=== PATIENT | female | born 1985 | race Caucasian/White ===

== ENCOUNTER 2017-03-05 06:42 | Day surgery (SDC) | payer MEDICAID ==
[2017-03-05] MEDS ORDERED: LACTATED RINGER'S 1,000 ML IV SCH (07:00)
== END 2017-03-05 08:15 | disposition home or self-care (01) ==
LOC: SDS 06:42
PROVIDERS: ATTEND Obstetrics & Gynecology
DX: Z30.2 Encounter for sterilization (principal); Z53.9 Procedure and treatment not carried out, unspecified reason

== ENCOUNTER 2017-03-07 07:29 | Day surgery (SDC) | payer MEDICAID ==
[2017-03-07] VITALS (11 sets, daily range): BP systolic 84–121; BP diastolic 37–78; PULSE 59–80; RESP 12–24; Ht 154.9 cm; Wt 61.0 kg
[~2017-03-07] VITALS: Ht 154.9 cm; Wt 61.0 kg
[2017-03-07 08:34] LABS: ADD SCAN DIFF NO
[2017-03-07 08:43] LABS: HEMATOCRIT 34.7 % (37.0-47.0); HEMOGLOBIN 11.4 g/dl (12.0-16.0); MEAN CORPUSCULAR HGB CONC 32.9 g/dl (32.0-37.0); MEAN CORPUSCULAR VOLUME 91.3 fl (82.0-101.0); MEAN PLATELET VOLUME 9.4 fl (7.4-10.4); PLATELET COUNT 240 10^3/UL (140-415); RED CELL DISTRIBUTION WIDTH 12.4 % (11.5-14.5); WHITE BLOOD COUNT 7.9 10^3/ul (4.8-10.8)
[2017-03-07] MEDS ORDERED: LACTATED RINGER'S 1,000 ML IV SCH (09:00)
[2017-03-07] MEDS ORDERED: FENTAnyl 50 MCG/ML VIAL ONE (09:03)
[2017-03-07] MEDS ORDERED: FAMOTIDINE 20 MG INJ ONE (09:03)
[2017-03-07] MEDS ORDERED: DEXAMETHASONE 4 MG/ML 1 ML INJ ONE (09:03)
[2017-03-07] MEDS ORDERED: PROPOFOL 20 ML ONE (09:03)
[2017-03-07] MEDS ORDERED: MIDAZOLAM 1 MG/ML 2 ML INJ ONE (09:03)
[2017-03-07] MEDS ORDERED: ONDANSETRON 4 MG INJ ONE (09:03)
[2017-03-07 09:53] LABS: EOSINOPHILS # 1.1 10^3/ul (0.0-0.5); LYMPHOCYTES # 3.1 10^3/ul (0.8-2.9); MONOCYTE # 0.3 10^3/ul (0.3-0.9); NEUTROPHIL # 3.4 10^3/ul (1.6-7.5)
[2017-03-07] MEDS ORDERED: ACETAMINOPHEN 1000MG/100ML IV 100 ML ONE (10:12)
[2017-03-07] MEDS ORDERED: GLYCOPYRROLATE 0.4 MG INJ ONE (10:21)
[2017-03-07] MEDS ORDERED: NEOSTIGMINE 3 MG/3 ML SYRINGE ONE (10:22)
[2017-03-07] MEDS ORDERED: MIDAZOLAM 1 MG/ML 2 ML INJ IV PRN (10:30)
[2017-03-07] MEDS ORDERED: METOCLOPRAMIDE 10 MG INJ IV PRN (10:30)
[2017-03-07] MEDS ORDERED: FENTAnyl 50 MCG/ML VIAL IV PRN (10:30)
[2017-03-07] MEDS ORDERED: HYDROmorphONE (0.2 MG/ML) 10ML SYG IV PRN ×3 (10:30)
[2017-03-07] MEDS ORDERED: MEPERIDINE 25 MG INJ IV PRN (10:30)
[2017-03-07] MEDS ORDERED: ONDANSETRON 4 MG INJ IV PRN (10:30)
[2017-03-07] MEDS ORDERED: IBUPROFEN 600 MG TAB PO SCH (12:00)
--- NOTE | 2017-03-07 12:00 | OPR ---
DATE OF OPERATION: 03/07/2017 PREOPERATIVE DIAGNOSIS: Multiparity, desires sterilization. POSTOPERATIVE DIAGNOSIS: Multiparity, desires sterilization. OPERATION PERFORMED: Laparoscopic bilateral tubal ligation. SURGEON: Wallace Badillo MD ANESTHESIA: General. COMPLICATIONS: None. ESTIMATED BLOOD LOSS: Less than 5 mL. DESCRIPTION OF PROCEDURE: The patient was taken to the operating room where general anesthesia was found to be adequate. The patient was placed in dorsal lithotomy position. After prep and drape, a weighted speculum was placed inside the vaginal vault. Anterior lip of the cervix was grasped by a single-toothed tenaculum. Cervix was dilated by Gonzalez dilators, HUMI was inserted, and attention w as turned to abdominal field. A 1 cm incision was made below the umbilicus. First trocar was inser jerilyn under direct visualization of the camera. Intraabdominal cavity was filled up using 4 L of CO2. Second trocar was inserted on the left side of the patient, 8 to 10 cm from the first one, and the n both tubes and ovaries were identified. The right tube was grasped using a gyrus applicator and m idportion of the right tube was burned for 3 cm. Same was done on the left tube, pictures were take n, and trocar was removed under direct visualization of the camera. The skin was closed using 3-0 M onocryl sutures, and Dermabond was placed on top of the incision. HUMI and Flores were removed. The patient tolerated the procedure well and was transferred to recovery room in stable condition. The re was no complication regarding this procedure. Dictated By: WALLACE BAINS/JOSSUE Conf#: [id number] DID#: [id number]
--- NOTE | 2017-03-07 12:14 | HP ---
DATE OF ADMISSION: 03/07/2017 HISTORY OF PRESENT ILLNESS: A 31-year-old 1, para 1 admitted for laparoscopic bilateral tub al ligation. She is multiparity, desires sterilization. PAST MEDICAL HISTORY: Denies. PAST SURGICAL HISTORY: Denies. ALLERGIES: NKDA. PHYSICAL EXAMINATION: VITAL SIGNS: Stable. GENERAL: Normal. ABDOMEN: Not tender, not distended. GENITAL: Normal. ASSESSMENT AND PLAN: The patient is multipara and desires sterilization. The patient is scheduled for laparoscopic bilateral tubal ligation. Risks and benefits discussed. Alternatives discussed. The patient signed the consent and was taken to the operating room. Dictated By: DELROY BAINS/JOSSUE Conf#: [id number] DID#: [id number]
== END 2017-03-07 12:00 | disposition home or self-care (01) ==
LOC: SDS 07:29
PROVIDERS: ATTEND Obstetrics & Gynecology
DX: Z30.2 Encounter for sterilization (principal)
CPT/HCPCS: 58670; 84703; 85025; 86850; 86900; 86901; J0131; J1100; J2250; J2405; J2710; J3010; Z7512; Z7610; J1170; J2175